=== PATIENT | female | born 1970 | race Caucasian/White ===

== ENCOUNTER → 2021-08-29 | Outpatient (CLI) | payer BC | LOC: MC.RAD 07:24 | DX: Z12.31 Encounter for screening mammogram for malignant neoplasm of breast (principal) ==

== ENCOUNTER 2021-10-11 05:22 | Day surgery (SDC) | payer BC ==
[~2021-10-11] VITALS: Ht 167.6 cm; Wt 66.8 kg
[2021-10-11] VITALS (10 sets, daily range): BP systolic 94–124; BP diastolic 53–83; PULSE 57–86; TEMP 98.1–99.3
[2021-10-11] MEDS ORDERED: MASON NATURAL2000 IU PO (05:55)
[2021-10-11] MEDS ORDERED: MULTI VITAMINS1 TAB PO (05:56)
[2021-10-11] MEDS ORDERED: TUMS ULTRA1000 MG PO (05:57)
[2021-10-11] MEDS ORDERED: AZO-CRANBERRY450 MG PO (05:58)
[2021-10-11] MEDS ORDERED: MOTRIN 800800 MG/TAB PO (06:12)
[2021-10-11] MEDS ORDERED: PERCOCET 325 MG1 TA2 PO (06:13)
--- NOTE | 2021-10-11 11:15 | NUR ---
RT NOTIFIED OF ORDER FOR INCENTIVE SPIROMETER.
--- NOTE | 2021-10-11 11:41 | NUR ---
PT RESTING QUIETLY IN BED, RESPIRATIONS UNLABORED ON 2L O2 NC. PT STATES THAT SHE FEELS GROGGY BUT NAUSEA IS MUCH IMPROVED. [place]ARRAN CATHETER DRAINING DEPENDENTLY, URINE IS YELLOW ET CLEAR. 4 ABDOMINAL LAP SITES ARE WELL APPROXIMATED, NO DRAINAGE. IVF INFUSING. PT HAS TAKEN A FEW SIPS OF ICE WATER. PT DENIES NEEDS, CLOSES EYES. CALL LIGHT WITHIN REACH.
--- NOTE | 2021-10-11 14:15 | NUR ---
PT RESTING IN BED, A&O X3, HAS EATEN LUNCH ET TOLERATED FOOD WELL. PT DENIES NAUSEA ET STATES THAT PAIN IS TOLERABLE, RATES 3/10, DENIES NEED FOR PAIN MEDICATION. IVF INFUSING. OXYGEN HAS BEEN OFF, RESPIRATIONS UNLABORED ON RA. PT DENIES NEEDS, STATES THAT SHE WILL CALL WHEN SHE IS READY TO GET UP ET WALK. CALL LIGHT WITHIN REACH.
--- NOTE | 2021-10-11 18:17 | NUR ---
PT IS ASSISTED TO AMBULATE IN HALLS WITH SBA ET GAITBELT. IS @ BEDSIDE. PT BECOMES NAUSEOUS AFTER LEAVING HER ROOM, IS ASSISTED BACK INTO BED AFTER WALKING 40 FT. PT BECOMES LESS NAUSEOUS AFTER SITTING BACK DOWN, STATES THAT SHE HAS A HX OF BECOMING MOTION SICK. ZOFRAN IV ADMINISTERED. PT STATES THAT PAIN IS TOLERABLE @ THIS TIME, DENIES OTHER NEEDS. ALBARRAN CATHETER DRAINING DEPENDENTLY, URINE IS YELLOW ET CLEAR. IVF INFUSING. RESPIRATIONS UNLABORED ON RA. CALL LIGHT WITHIN REACH.
[2021-10-12] VITALS: BP 103/57; PULSE 50; TEMP 99.2
--- NOTE | 2021-10-12 00:18 | NUR ---
Patient has had an uneventful evening thus far. Here d/t hyster. with both ovaries and fallopian tubes removed. Patient has had minimal complaints of pain, 4 lap sites are CDI and appear well approximated. Full body assessment and vital signs completed without difficulty and are WNL. Patient has had minimal complaints of pain, rates her pain a 3/10 but paid meds have been affective for her. No other complaints at this time, call light within reach.
[2021-10-12 04:00] VITALS: BP 101/59; PULSE 78; TEMP 98.8
--- NOTE | 2021-10-12 05:55 | NUR ---
Orders for slaughter removal in the AM. Patient has had no issues with slaughter, drainage has been pale yellow, with no visible signs of sediment. 8mls of water was removed from the slaughter balloon. Catheter removed without difficulty. Patient tolerated procedure well. This nurse explained to the patient that when she is up to void to let nursing staff know. No other questions or complaints at this. Call light within reach.
[2021-10-12 08:00] VITALS: BP 117/69; PULSE 73; TEMP 98.7
--- NOTE | 2021-10-12 11:12 | NUR ---
Initial visit; Patient thanked Recreation Adviser for introducing herself and offering God's blessings this morning.
--- NOTE | 2021-10-12 12:06 | NUR ---
DISCHARGE INSTRUCTIONS GIVEN, MEDICATIONS REVIEWED, IV DC'D. PATIENT DENIES ANY QUESTIONS OR CONCERNS AT THIS TIME. PATIENT ESCORTED OUT VIA WHEELCHAIR.
== END 2021-10-12 11:55 | disposition home or self-care (01) ==
LOC: SDCO 05:22 → SURG 11:00 → SDCO 10-12 11:55
PROVIDERS: Obstetrics & Gynecology
DX: N92.0 Excessive and frequent menstruation with regular cycle (principal); N80.1 Endometriosis of ovary; D25.1 Intramural leiomyoma of uterus; N73.6 Female pelvic peritoneal adhesions (postinfective); N83.12 Corpus luteum cyst of left ovary; N88.8 Other specified noninflammatory disorders of cervix uteri; N85.2 Hypertrophy of uterus
CPT/HCPCS: OP; A4314; A9284; J0690; J1100; J1170; J1885; J2405; J2550; J2704; J3010; J7120